=== PATIENT | male | born 1970 | race Caucasian/White ===

== ENCOUNTER 2017-08-26 20:13 | Emergency (ER) | payer OTHER, SELFPAY ==
--- NOTE | 2017-08-26 23:12 | RAD ---
RIGHT FOOT THREE VIEWS: History: Injury, right foot pain. FINDINGS/IMPRESSION: There is a fracture involving the neck of the proximal phalanx of the fifth digit without significan t displacement. POS: [facility]
== END 2017-08-26 22:26 | disposition home or self-care (01) ==
LOC: ERS 20:13
DX: S92.511A Displaced fracture of proximal phalanx of right lesser toe(s), initial encounter for closed fracture (principal); S90.31XA Contusion of right foot, initial encounter; J45.909 Unspecified asthma, uncomplicated; F17.210 Nicotine dependence, cigarettes, uncomplicated; W50.1XXA Accidental kick by another person, initial encounter

== ENCOUNTER 2017-09-01 08:44 | Emergency (ER) | payer SELFPAY ==
[2017-09-01] MEDS ORDERED: methylPREDNISolone Sod Succ/PF 125 MG/2 ML VIAL ONE (10:01)
[2017-09-01] MEDS ORDERED: Budesonide 0.5 MG/2 ML NEB ONE (10:12)
[2017-09-01] MEDS ORDERED: Water For Inject, Bacteriostat 30 ML ONE (10:12)
--- NOTE | 2017-09-01 10:21 | RAD ---
CHEST 2 VIEWS: HISTORY: Cough. COMPARISON: Chest 2 views 2016. Chest 1 view 05/14/17. FINDINGS: Lungs are clear. No pneumothorax or effusion. Cardiac silhouette and mediastinal contours are sonido lar. Minimal spondylitic changes. IMPRESSION: No acute intrathoracic abnormality. POS: [facility]
== END 2017-09-01 12:01 | disposition home or self-care (01) ==
LOC: ERS 08:44
DX: J20.9 Acute bronchitis, unspecified (principal); R09.02 Hypoxemia; T78.40XA Allergy, unspecified, initial encounter; J45.909 Unspecified asthma, uncomplicated; M19.90 Unspecified osteoarthritis, unspecified site; F17.210 Nicotine dependence, cigarettes, uncomplicated
CPT/HCPCS: 71020; 94640; 94760; 96361; 96374; J2930; J7620; J7626

== ENCOUNTER 2017-12-02 02:19 | Inpatient (IN) | payer BC, OTHER, SELFPAY ==
[2017-12-02] MEDS ORDERED: Ondansetron HCl/PF 4 MG/2 ML Vial ONE ×2 (02:43→07:48)
[2017-12-02 02:47] LABS: #Basophils 0.1 thou/uL (0.0-0.2); #Lymphocytes 1.6 thou/uL (1.20-3.40); #Monocytes 1.3 thou/uL (0.11-0.59); #Neutrophils 7.3 thou/uL (1.40-6.50); %Basophils 0.6 % (0.0-1.0); %Eosinophils 0.2 % (0.0-10.0); %Lymphocytes 15.8 % (21.0-51.0); %Monocytes 12.6 % (0.0-10.0); %Neutrophils 70.9 % (42.0-75.0); Hemoglobin 14.6 g/dL (14.0-18.0); Mean Corpuscular HGB CONC 34.8 g/dL (32.0-36.0); Mean Corpuscular Hemoglobin 32.1 pg (27.0-31.0); Mean Corpuscular Volume 92.4 fl (80.0-94.0); Mean Platelet Volume 7.1 fL (7.4-10.4); Platelet Count 231 thou/uL (130-400); RBC Distribution Width 13.1 % (11.5-14.5); Red Blood Cell (RBC) Count 4.55 mill/uL (4.70-6.10); White Blood Cell (WBC) Count 10.3 thou/uL (4.8-10.8)
[2017-12-02 03:01] LABS: ALT (SGPT) 35 U/L (8-55); AST (SGOT) 65 U/L (5-34); Albumin 3.6 g/dL (3.5-5.0); Alkaline Phosphatase 86 U/L (40-150); Anion Gap 16 mmol/L (10-20); BUN (Urea Nitrogen) 16 mg/dL (8.9-20.6); Bilirubin, Total 1.2 mg/dL (0.2-1.2); CK (CPK) 353 U/L (30-200); Calc. Creatinine Clearance 0 mL/min (70-130); Calcium 8.2 mg/dL (7.8-10.44); Carbon Dioxide 27 mmol/L (22-29); Chloride 91 mmol/L (98-107); Estimated GFR-MDRD Greater than 90; Globulin 2.7 g/dL (2.4-3.5); Glucose 141 mg/dL (70-105); Lipase 25 U/L (8-78); Potassium 3.7 mmol/L (3.5-5.1); Protein, Total 6.3 g/dL (6.0-8.3); Sodium 130 mmol/L (136-145)
[2017-12-02 03:04] LABS: Troponin I 0.017 ng/mL (< 0.028)
[2017-12-02 03:05] LABS: Acetaminophen Less than 6.0 mcg/mL (10.0-30.0); Alcohol 145 mg/dL (Less than 10); Salicylate Less than 8.0 mg/dL (15.0-30.0)
[2017-12-02] MEDS ORDERED: Pantoprazole 40 MG VIAL ONE ×2 (03:36→08:47)
[2017-12-02] MEDS ORDERED: Acetaminophen 500 MG TAB ONE (03:52)
[2017-12-02 04:02] LABS: Bilirubin Negative (Negative); Blood, Urine Negative (Negative); Clarity CLEAR (Clear); Glucose, Urine (Dipstick) Negative (Negative); Leukocyte Negative (Negative); Nitrite Negative (Negative); Protein, Urine (Dipstick) Negative (Neg-Trace); Specific Gravity, Urine 1.021 (1.002-1.036)
[2017-12-02 04:18] LABS: Amphetamine Not Detected (NotDetected); Barbiturates Screen Not Detected (NotDetected); Benzodiazepine Screen Not Detected (NotDetected); Cocaine Metabolite Screen Not Detected (NotDetected); Medtox Control Line Valid? VALID (VALID); Medtox Reader # READER 4; Methadone Not Detected (NotDetected); Methamphetamine Not Detected (NotDetected); Opiate Screen Not Detected (NotDetected); Oxycodone Screen Not Detected (NotDetected); Phencyclidine (PCP) Not Detected (NotDetected); THC/Cannabinoid Screen Not Detected (NotDetected); Tricyclic Screen Not Detected (NotDetected)
[2017-12-02] MEDS ORDERED: Mag-Al 1200 mg/1200 mg/30 ML UDCUP ONE (04:39)
[2017-12-02] MEDS ORDERED: Lidocaine Viscous Sol 2% 15 ml UD Cup ONE (04:39)
[2017-12-02] MEDS ORDERED: Ondansetron ODT 4 MG TAB PO PRN (06:47)
[2017-12-02] MEDS ORDERED: Acetaminophen 325 MG TAB PO PRN (06:47)
[2017-12-02] MEDS ORDERED: Loratadine 10 MG TAB PO PRN (06:47)
[2017-12-02] MEDS ORDERED: Sodium Chloride 0.65% Nasal 44 ML BOT EA NARE PRN (06:47)
[2017-12-02] MEDS ORDERED: hydrALAZINE 20 MG/ML VIAL SLOW IVP PRN (06:47)
[2017-12-02] MEDS ORDERED: Senokot 8.6 MG TAB PO PRN (06:47)
[2017-12-02] MEDS ORDERED: Loperamide HCl 2 MG CAP PO PRN (06:47)
[2017-12-02] MEDS ORDERED: Diabetic Tussin 200 MG/10 ML UDCUP PO PRN (06:47)
[2017-12-02] MEDS ORDERED: Calcium Carbonate 500 MG ChewTAB PO PRN (06:47)
[2017-12-02] MEDS ORDERED: Milk Of Magnesia 30 ML UDCUP PO PRN (06:47)
[2017-12-02] MEDS ORDERED: Artificial Tears 18 DROP/0.9 ML EA EYE PRN (06:47)
[2017-12-02] MEDS ORDERED: Ondansetron HCl/PF 4 MG/2 ML Vial IVP PRN (06:47)
[2017-12-02] MEDS ORDERED: Mag-Al 1200 mg/1200 mg/30 ML UDCUP PO PRN (06:47)
[2017-12-02] MEDS ORDERED: Eucerin (Mineral Oil/Petrolatum,White) 30 gm Jar TOP PRN (06:47)
[2017-12-02] MEDS ORDERED: Chloraseptic Spray 180 ml Bottle PO PRN (06:47)
[2017-12-02] MEDS ORDERED: Labetalol HCl 100 MG/20 ML VIAL SLOW IVP PRN (06:47)
[2017-12-02] MEDS ORDERED: Zolpidem Tartrate 5 MG TAB PO PRN (06:47)
[2017-12-02] MEDS ORDERED: Multivit, Adult Inj 10 ML VIAL IV SCH (07:00)
--- NOTE | 2017-12-02 08:02 | RAD ---
RADIOGRAPH CHEST 1 VIEW: HISTORY: A 47-year-old male with hematemesis. FINDINGS: There are no air space densities, pulmonary edema, pneumothorax, or cardiomegaly. The lateral costop hrenic angles are sharp. IMPRESSION: No acute cardiopulmonary findings. jn [] POS: [facility]
[2017-12-02] MEDS ORDERED: Pantoprazole 40 MG VIAL IVP SCH (09:00)
[2017-12-02] MEDS ORDERED: Promethazine HCl 25 MG/ML VIAL ONE (09:02)
[2017-12-02] MEDS ORDERED: PROVENTIL INHALER 6.7 G (200 INHALATIONS) INH PRN (09:26)
--- NOTE | 2017-12-02 10:02 | HP ---
PRIMARY CARE PHYSICIAN: [facility] call admission. REASON FOR ADMISSION: Upper gastrointestinal bleed. HISTORY OF PRESENT ILLNESS: A 47-year-old male who has history of tobacco and alcohol abuse, who cam e to the emergency room with complaint of melanotic stool for 3 days. Last night, the patient had vo miting of blood. He had a total of 4 times of vomiting of blood about 1 cup of fresh blood. He was having substernal burning discomfort as well as epigastric abdominal pain. The patient was also havi ng epigastric and substernal pain yesterday during daytime and to get better, he drinks alcohol. He denies any dizziness, syncope. He does report left upper quadrant abdominal pain. The patient was f eeling jittery, anxious. In the emergency room, he was tachycardic, uncomfortable. He was hemodynamically stable other than t achycardia and routine blood tests showed hemoglobin 14.6. At this point, we are admitting this nelia ent for further evaluation. REVIEW OF SYSTEMS: The following complete review of systems was negative, unless otherwise mentioned in the HPI or below: Constitutional: Weight loss or gain, ability to conduct usual activities. Skin: Rash, itching. Eyes: Double vision, pain. ENT/Mouth: Nose bleeding, neck stiffness, pain, tenderness. Cardiovascular: Palpitations, dyspnea on exertion, orthopnea. Respiratory: Shortness of breath, wheezing, cough, hemoptysis, fever or night sweats. Gastrointestinal: Poor appetite, abdominal pain, heartburn, nausea, vomiting, constipation, or diarr hea. Genitourinary: Urgency, frequency, dysuria, nocturia. Musculoskeletal: Pain, swelling. Neurologic/Psychiatric: Anxiety, depression. Allergy/Immunologic: Skin rash, bleeding tendency. Please see my HPI for pertinent positives and negatives. All other review of systems were reviewed a nd negative except as mentioned in the HPI. ALLERGIES: Patient is allergic to IBUPROFEN, SHELLFISH, SOY and CORN CONTAINING PRODUCT. CURRENT MEDICATIONS: Patient is not taking any medication at this point. Based on our hospital disc harge summary, the patient was on following medications: ProAir HFA 2 puffs q.6 hours p.r.n., folic acid 1 mg p.o. daily, lisinopril 5 mg p.o. daily, metoprolol 25 mg p.o. b.i.d., Dulera 2 puffs inhala tion b.i.d., multivitamin 1 tablet p.o. daily, Protonix 40 mg p.o. daily, thiamine 100 mg p.o. daily. PAST MEDICAL HISTORY: Alcohol abuse, tobacco abuse disorder, hypertension, asthma, right knee arthri tis. PAST PSYCHIATRIC HISTORY: Anxiety, depression, and bipolar disorder. PAST SURGICAL HISTORY: Oral surgery, upper endoscopy was performed in 05/2017 and found severe erosi ve esophagitis. SOCIAL HISTORY: Patient is smoking about 1 pack per day. He drinks alcohol 4 times per week. He de nies any other illicit drug abuse. FAMILY HISTORY: No strong family history of premature coronary artery disease, stroke or cancer. EMERGENCY ROOM COURSE: Patient has received DuoNeb therapy, Phenergan 12.5 mg IV push, multivitamin, nicotine patch, IV fluids, Zofran 4 mg, GI cocktail, Tylenol 1 gram, Protonix 40 mg IV, Zofran 8 mg. PHYSICAL EXAMINATION: VITAL SIGNS: On arrival, blood pressure 133/92, pulse 123, respiratory rate 24, temperature 98.9, sa turation 94% on room air, weight 122.4 kilograms. GENERAL: Patient is currently uncomfortable due to epigastric abdominal pain. HEAD: Normocephalic, atraumatic. EYES: Pupils round, reactive to light. Extraocular muscle intact. No nystagmus. ENT: Dry appearing mucous membranes. No oral lesions. No pharyngeal erythema, no exudate. NECK: Supple, no JVD, no thyromegaly, no carotid bruit, no meningeal signs of irritation. LUNGS: Bilateral few end expiratory wheezing heard. No rhonchi, no rales. CARDIAC: S1, S2 regular, tachycardia, no murmur, no gallop, no rub. ABDOMEN: Epigastric tenderness. No peritoneal signs, no distention. Bowel sounds present. No supr apubic tenderness. No organomegaly, no mass. BACK: Unremarkable, no CVA tenderness. EXTREMITIES: Upper extremity, passive movement of all joints are normal. Lower extremity, no edema . Good peripheral pulsation. No calf tenderness. SKIN: No skin rash. HEMATOLOGICAL: No lymphadenopathy. NEUROLOGIC: Nonfocal examination. The patient moves all 4 limbs. Plantar bilateral flexor. PSYCHIATRIC: Anxious affect. SIGNIFICANT LABORATORY DATA AND IMAGIN. EKG showing sinus tachycardia, incomplete right bundle branch block pattern, left anterior fascic ular block. 2. CT chest showing small to moderate hiatal hernia with nonspecific thickening of the distal esopha jalil. Chest x-ray based on my review, no acute cardiopulmonary process. 3. CBC: WBC 10.3, hemoglobin 14.6, platelets 231. BMP: Sodium 130, potassium 3.7, chloride 91, ca rbon dioxide 27, BUN 16, creatinine 0.69, glucose 141, calcium 8.2. 4. LFT: AST 65, ALT 35, alkaline phosphatase 86, albumin 3.6. CK 353, CK-MB 4.0, troponin I 0.017. BNP 10, lipase 25. Urinalysis normal. Urine drug screen negative. Alcohol level 145 on admission . ASSESSMENT AND PLAN: 1. Intractable nausea and vomiting. I am suspecting from esophagitis and gastritis. The patient wi ll need symptomatic treatment with Protonix, Zofran and Phenergan for control of nausea and vomiting. 2. Acute upper gastrointestinal bleed. Patient gives history of melenotic stool and hematemesis, mo st likely related with Olga-Marie tear. At this point, hemoglobin is stable. The patient will be kept n.p.o. We will consult card tape converter operator for upper endoscopic evaluation if needed. We will monitor H&H today at q.6 hourly. 3. Dehydration, likely due to poor p.o. tolerance. Patient has low sodium, low chloride. The patie nt will be given IV fluid with multivitamin and will repeat BMP tomorrow. 4. Abnormal liver function tests. Patient has elevated AST more than ALT, likely related with his o ngoing alcohol abuse history. 5. Hyponatremia and hypochloremia, likely due to dehydration. The patient will be given IV fluid an d we will repeat BMP tomorrow. 6. Alcohol abuse. Patient will be given multivitamin through the IV and we will watch for any alcoh ol withdrawal symptoms while in hospital, we will use Ativan p.r.n. basis. 7. Asthma. We will continue DuoNeb therapy q.6 hourly and Dulera 2 puffs inhalation b.i.d. 8. Hypertension. If blood pressure permits, then we will continue with lisinopril 5 mg p.o. daily, metoprolol 25 mg p.o. b.i.d. 9. Deep venous thrombosis prophylaxis. No Lovenox, because of bleeding. 10. Gastrointestinal prophylaxis. Patient is already on Protonix therapy IV b.i.d. 11. Code status: The patient is FULL CODE. Patient does not have any surrogate decision maker. 12. Tobacco abuse disorder. Smoking cessation counseling given. We will use nicotine patch while i n hospital if needed. Plan of care discussed with the patient in detail. 13. Hypertension. If blood pressure permits, then I will resume lisinopril 5 mg p.o. daily, metopro lol 25 mg p.o. b.i.d.
--- NOTE | 2017-12-02 10:25 | CT ---
PRELIMINARY REPORT/[facility]/EMERGENCY AFTER HOURS PROCEDURE: Addendum created by Benjamín Tovar MD on 12/02/2017 3:37 AM Central Time ( & [place]) Findings were discussed with Justice Meyers at 12/02/2017 3:37 AM RIGGER. Initial Report created on 12/02/2017 3:27 AM Central Time ( & [place]) EXAM: CT Chest With Intravenous Contrast EXAM DATE/TIME: Exam ordered 12/02/2017 2:56 AM CLINICAL HISTORY: 47 years old, male; Pain; Chest pain; Type not specified; Patient HX: Pain, n/v TECHNIQUE: Axial computed tomography images of the chest with intravenous contrast. Coronal reformatted images were created and reviewed. CONTRAST: 100 mL of ISOVUE administered intravenously. COMPARISON: No relevant prior studies available. FINDINGS: Lungs: The lungs are normal.The bronchial tree is normal. Pleural space: Normal. No pneumothorax. No significant effusion. Heart: Normal. No cardiomegaly. No significant pericardial effusion. Mediastinum: There is a small to moderate hiatal hernia with nonspecific thickening of the distal eso phagus. The trachea is normal. Thyroid: The visualized thyroid gland is unremarkable. Bones/joints: Normal. No acute fracture. No dislocation. Soft tissues: Normal. Vasculature: Normal. No thoracic aortic aneurysm. Lymph nodes: Normal. No enlarged lymph nodes. Upper abdomen: The visualized intra-abdominal structures are normal. IMPRESSION: There is a small to moderate hiatal hernia with nonspecific thickening of the distal esophagus. Consider further evaluation with direct inspection as clinically warranted to exclude underlying mass . Thank you for allowing us to participate in the care of your patient. Dictated and Authenticated by: Benjamín Tovar MD 12/02/2017 3:27 AM Central Time ( & [place]) FINAL REPORT EXAM: CHEST CT WITH CONTRAST: HISTORY: Asthma. Bipolar disorder. Esophageal tear present. TVD with vomiting blood and bloody stool. COMPARISON: None. TECHNIQUE: Chest CT is performed with IV contrast. Coronal reformatted images are submitted for interpretation. FINDINGS: This report is in agreement with the preliminary report by [facility]. There is moderate hiatal hernia. Th ere is nonspecific mucosal and paraesophageal thickening. No evidence of pneumomediastinum. No pneu mothorax. POS: [facility]
[2017-12-02 12:21] VITALS: BMI 32.8
[2017-12-02 12:46] LABS: Hemoglobin 13.5 g/dL (14.0-18.0)
[2017-12-02] MEDS: Dextrose 5 %-0.45 % NaCl 1,000 ML IV SCH ×2 (12:54→16:34)
[2017-12-02] MEDS: Multivitamins, Adult 10 ML in Sodium Chloride 0.9% 500 ML IV SCH ×2 (12:54)
[2017-12-02] MEDS: Nicotine 21 MG PATCH TD SCH (14:21)
--- NOTE | 2017-12-02 14:23 | CON ---
DATE OF CONSULTATION: 12/02/2017 GASTROINTESTINAL INPATIENT CONSULTATION NOTE REQUESTING PHYSICIAN: Todd Hernandez M.D. REASON FOR CONSULTATION: Hematemesis. HISTORY OF PRESENT ILLNESS: Betito Ching is a 47-year-old gentleman whom I had met a couple of memo es in prior hospitalizations. He has a history of alcohol abuse, tobacco abuse, arthritis and asthma as well as depression and anxiety. Back in 2014, he presented with acute hematemesis and an EGD at that time demonstrated a Olga-Marie tear. I met him again in 05/2017 when he again presented for hematemesis and chest pain in the context of alcohol intoxication. EGD at that time demonstrated sev ere LA grade D esophagitis throughout the lower esophagus. I had recommended that he continue on aci d suppression indefinitely as well as quit drinking all alcohol. Since that time, the patient has continued to drink alcohol. He has not continued on acid suppressio n. He does not take NSAIDs. He was not having any gastrointestinal symptoms until the past 3 days o r so, he says at that point, he knows that his bowel movements were appearing jet black. He started to have some crampy pain in the left upper quadrant and burning pain in the epigastrium and the chest over the past day or two and then last night had acute vomiting with tasia hematemesis. His last ep isode of hematemesis was early this morning. He presented and was found to be hemodynamically stable with initial hemoglobin of 14.5 and this is stable at 13.5. He is currently feeling a bit better. Nausea has improved, burning chest and epigastric discomfort persist and his alcohol level was 135. REVIEW OF SYSTEMS: Full review of systems including constitutional, head, eyes, ears, nose, throat, GI, , cardiovascular, respiratory, musculoskeletal, and neurologic systems is negative except as no tia in the HPI. PAST MEDICAL HISTORY: Asthma, hypertension, depression, anxiety, bipolar disorder, alcohol abuse, on going tobacco abuse, ongoing right knee arthritis, severe erosive esophagitis 05/2017 and Olga-Crescencio ss tear 2014. ALLERGIES: IBUPROFEN, SHELLFISH, SOY, CORN. OUTPATIENT MEDICATIONS: Albuterol inhaler p.r.n. No other outpatient medications. SOCIAL HISTORY: The patient smokes about 1 pack per day. He will have several beers at least 4 time s per week. No drug abuse. FAMILY HISTORY: Noncontributory. PHYSICAL EXAMINATION: VITAL SIGNS: Temperature 99.2, pulse 104, blood pressure 159/94, 96% oxygen saturation on room air. GENERAL: A 47-year-old gentleman sitting up in bed comfortably in no acute distress. SKIN: No jaundice, no rashes were palpable. EYES: No scleral icterus. Extraocular movements intact. ENT: Mucous membranes moist, no oral lesions. LYMPHATIC: No submandibular, supraclavicular lymphadenopathy. THYROID: Nontender to palpation. HEART: Regular rate and rhythm. Borderline tachycardia. LUNGS: Clear to auscultation bilaterally. ABDOMEN: Bowel sounds present, soft, tender to palpation in the epigastrium, but no guarding, reboun d tenderness. No masses or organomegaly appreciated. EXTREMITIES: No peripheral edema. VESSELS: Radial pulses 2+ bilaterally. NEUROLOGICAL: Cranial nerves II-XII intact bilaterally. No focal deficits. LABORATORY STUDIES: Hemoglobin 13.5, hematocrit 39.5, WBC 10.3, platelets 231. Sodium 130, potassiu m 3.7, BUN 16, creatinine 0.69, glucose 141. Total bilirubin 1.2, alkaline phosphatase 86, AST 65, A LT 35, CK 353, CK-MB only 4, troponin 0.017. BNP only 10, albumin 3.6, lipase only 25. Urinalysis n egative. Plasma alcohol 145. Urine drug screen negative. Acetaminophen level and salicylate levels are undetectable. ASSESSMENT AND PLAN: 1. Acute hematemesis. 2. Chronic alcohol abuse. 3. Chest pain. 4. Epigastric pain. 5. History of esophagitis. 6. History of Olga-Marie tear, the patient's presentation is consistent with prior presentations most recently in 05/2017. EGD at that time showed severe LA grade D erosive esophagitis in the dista l esophagus. He also does have a history of a Olga-Marie tear. I suspect he either developed ano ther Olga-Marie tear or this represents severe ongoing esophagitis. At any rate, given the tasia hematemesis, EGD is warranted at this admission. We will plan to perform EGD tomorrow. Continue the IV Protonix 40 mg q.12 h. in the meantime. In the long-term, obviously, the patient will need to st op drinking alcohol and he will likely need to be on lifelong acid suppression. I discussed this wit h the patient today. Thank you for the consultation. Further recommendations following EGD tomorrow. Please call at any time with questions or concerns.
[2017-12-02] MEDS: Lorazepam 1 MG TAB PO PRN ×2 (14:25→17:44)
[2017-12-02] MEDS ORDERED: Diazepam 5 MG TAB PO SCH ×2 (16:15→18:30)
[2017-12-02] MEDS ORDERED: ISOVUE-370 76%-LOCM 1 ML ONE (16:16)
[2017-12-02 17:40] LABS: Hemoglobin 12.8 g/dL (14.0-18.0)
[2017-12-02] MEDS ORDERED: Diazepam 5 MG TAB PO PRN (18:20)
[2017-12-02] MEDS ORDERED: Thiamine HCl 200 MG/2 ML VIAL IM SCH (18:30)
[2017-12-02] MEDS: Pantoprazole 80 MG, Admixture Fee 1 EACH in Sodium Chloride 0.9% 100 ML IVPB SCH (19:23)
[2017-12-02] MEDS: Mometasone/Formoterol 120 PUFF INHALER INH SCH (19:37)
[2017-12-02] MEDS: Metoprolol Tartrate 25 MG TAB PO SCH (20:26)
[2017-12-02] MEDS ORDERED: FLU VACC QS2017-18 36 mo. & older 0.5 ML SYRINGE IM ONE (21:00)
[2017-12-03 00:15] LABS: Hemoglobin 12.4 g/dL (14.0-18.0)
[2017-12-03] MEDS: Dextrose 5 %-0.45 % NaCl 1,000 ML IV SCH ×4 (00:18→20:34)
[2017-12-03] MEDS: HYDROcodone/Acetaminophen 5/325 mg Tablet PO PRN ×4 (04:17→20:31)
[2017-12-03] MEDS: Pantoprazole 80 MG, Admixture Fee 1 EACH in Sodium Chloride 0.9% 100 ML IVPB SCH ×2 (04:18→14:40)
[2017-12-03 04:44] LABS: #Lymphocytes 1.5 thou/uL (1.20-3.40); #Monocytes 0.9 thou/uL (0.11-0.59); #Neutrophils 5.5 thou/uL (1.40-6.50); %Basophils 0.5 % (0.0-1.0); %Eosinophils 0.4 % (0.0-10.0); %Lymphocytes 18.7 % (21.0-51.0); %Monocytes 11.7 % (0.0-10.0); %Neutrophils 68.7 % (42.0-75.0); Hemoglobin 13.8 g/dL (14.0-18.0); Mean Corpuscular HGB CONC 33.5 g/dL (32.0-36.0); Mean Corpuscular Hemoglobin 31.9 pg (27.0-31.0); Mean Corpuscular Volume 95.5 fl (80.0-94.0); Mean Platelet Volume 7.3 fL (7.4-10.4); Platelet Count 186 thou/uL (130-400); RBC Distribution Width 13.4 % (11.5-14.5); Red Blood Cell (RBC) Count 4.34 mill/uL (4.70-6.10)
[2017-12-03 05:10] LABS: ALT (SGPT) 27 U/L (8-55); AST (SGOT) 40 U/L (5-34); Albumin 3.4 g/dL (3.5-5.0); Alkaline Phosphatase 84 U/L (40-150); Anion Gap 12 mmol/L (10-20); BUN (Urea Nitrogen) 10 mg/dL (8.9-20.6); Bilirubin, Total 1.1 mg/dL (0.2-1.2); Calc. Creatinine Clearance 207 mL/min (70-130); Calcium 8.1 mg/dL (7.8-10.44); Carbon Dioxide 26 mmol/L (22-29); Chloride 102 mmol/L (98-107); Estimated GFR-MDRD Greater than 90; Globulin 2.7 g/dL (2.4-3.5); Glucose 99 mg/dL (70-105); Potassium 3.6 mmol/L (3.5-5.1); Protein, Total 6.1 g/dL (6.0-8.3); Sodium 136 mmol/L (136-145)
[2017-12-03] MEDS: Mometasone/Formoterol 120 PUFF INHALER INH SCH ×2 (06:38→19:02)
[2017-12-03] MEDS: Folic Acid 1 MG TAB PO SCH (08:14)
[2017-12-03] MEDS: Multivitamin W/ Minerals 1 TAB PO SCH (08:14)
[2017-12-03] MEDS: Metoprolol Tartrate 25 MG TAB PO SCH ×2 (08:40→20:33)
[2017-12-03] MEDS ORDERED: Diazepam 5 MG TAB PO SCH (09:00)
[2017-12-03] MEDS ORDERED: Multivitamin W/ Minerals 1 TAB PO SCH (09:00)
[2017-12-03] MEDS ORDERED: Folic Acid 1 MG TAB PO SCH (09:00)
[2017-12-03] MEDS: Lisinopril 5 MG TAB PO SCH (11:36)
[2017-12-03] MEDS: Magnesium Oxide 400 MG TAB PO SCH (11:37)
[2017-12-03] MEDS: Nicotine 21 MG PATCH TD SCH (11:38)
[2017-12-03] MEDS: Multivitamins, Adult 10 ML in Sodium Chloride 0.9% 500 ML IV SCH ×2 (12:47)
--- NOTE | 2017-12-03 12:47 | OP ---
DATE OF PROCEDURE: 12/03/2017 PROCEDURE: Esophagogastroduodenoscopy. PREOPERATIVE DIAGNOSIS: Hematemesis. OPERATIVE NOTE: Informed consent was obtained from the patient. He was sedated with total intraveno us anesthesia. The bite block was placed and the endoscope was advanced easily to the second portion of the duodenum and retroflexion was performed in the stomach. The esophagus had severe grade D ero sive esophagitis throughout the lower two-thirds of the esophagus. There was a stenosis in the lower esophagus through which the scope could pass easily through. A 3 cm hiatal hernia was present. The stomach was otherwise normal including retroflexed views. The pylorus and first and second portions of the duodenum were normal. IMPRESSION: 1. Grade D erosive esophagitis. 2. Distal esophageal stenosis through which the scope could pass through easily. 3. A 3 cm hiatal hernia. 4. Otherwise normal esophagogastroduodenoscopy. RECOMMENDATIONS: 1. Continue proton pump inhibitor drip today. 2. Change to oral pantoprazole 40 mg twice daily tomorrow. If he is unable to afford the pantoprazo le, then use omeprazole over the counter. 3. Repeat EGD in [address] Gaines to assess healing, rule out Jo's and reevaluate the stri cture. 4. Mechanical soft diet and advance as tolerated. 5. There are no stigmata of recent bleeding. I will sign off for now. Please call if GI can be of assistance.
[2017-12-03] MEDS ORDERED: Lidocaine 1% PF 5 ML VIAL ONE (13:08)
[2017-12-03] MEDS ORDERED: Propofol 200 MG/20 ML VIAL ONE (13:08)
[2017-12-03] MEDS: Mag-Al 1200 mg/1200 mg/30 ML UDCUP PO PRN (17:00)
--- NOTE | 2017-12-03 18:24 | PDOC.PN ---
- Subjective Encounter Start Date: 12/03/17 Encounter Start Time: 13:30 Patient seen and examined. s/p EGD. some epigastric discomfort. No overnight events - Objective Resuscitation Status: Resuscitation Status FULL:Full Resuscitation MAR Reviewed: Yes Vital Signs & Weight: Vital Signs (12 hours) Temp Pulse Resp BP BP Pulse Ox 12/03/17 16:00 138/92 H 12/03/17 15:02 98.8 F 88 20 138/92 H 96 12/03/17 12:00 134/87 12/03/17 11:36 87 114/86 12/03/17 11:03 98.1 F 86 20 134/87 99 12/03/17 08:00 98.0 F 87 20 114/86 114/86 98 Weight Admit Weight 270 lb Weight 270 lb I&O: 12/02/17 12/03/17 12/04/17 06:59 06:59 06:59 Intake Total 1845 Output Total 800 Balance 1045 Result Diagrams: 12/03/17 04:15 12/03/17 04:15 EKG Reviewed by me: Yes (Tele SR) Phys Exam - Physical Examination Constitutional: NAD Respiratory: no wheezing, no rales, no rhonchi, clear to auscultation bilateral Cardiovascular: RRR, no rub no heaves/pulsations Gastrointestinal: soft, non-tender, no distention, positive bowel sounds Musculoskeletal: no edema Neurological: non-focal, moves all 4 limbs Psychiatric: A&O x 3 Dx/Plan - Plan DVT proph w/SCDs IMPRESSION: 1. UGI bleed due to Erosive esophagitis s/p EGD 12/03 2. Anemia due to acute GI blood loss 3. Chronic Alcoholism 4. Tachyarrhythmia/Code green - prob due to alcohol withdrawal - improved 5. HTN 6. Mild Intermittent Asthma/HH/Wenxkfg-Tiyiepnhix-Uyfpnkg disorder/Tobacco dep / Obesity BMI 32.9/ Hyponatremia - resolved PLAN: * s/p EGD * Advance diet as tolerated * GI following * AM labs * Cont Protonix drip * Cont thiamine/folic acid/MVM * Add Cardizem PRN for elevated HR * Cont Metoprolol and Lisinopril * DC in AM if stable * Cont other current meds as below Review of Systems - Review of Systems Respiratory: negative: Cough, Dry, Shortness of Breath, Hemoptysis, SOB with Excertion, Pleuritic Pain, Sputum, Wheezing Cardiovascular: negative: chest pain, palpitations, orthopnea, paroxysmal nocturnal dyspnea, edema, light headedness Gastrointestinal: negative: Nausea, Vomiting, Abdominal Pain, Diarrhea, Constipation, Melena, Hematochezia - Medications/Allergies Allergies/Adverse Reactions: Allergies Allergy/AdvReac Type Severity Reaction Status Date / Time aspirin Allergy Intermediate Swollen Verified 02/28/16 07:48 Lips ibuprofen Allergy Intermediate Swollen Verified 02/28/16 07:48 Lips nut - unspecified Allergy Mild itching Verified 02/28/16 07:48 corn Allergy Verified 02/28/16 07:48 scallops Allergy Verified 02/28/16 07:48 shrimp Allergy Verified 02/28/16 07:48 soy Allergy Verified 03/25/16 09:55 wheat Allergy Verified 03/25/16 09:55 Medications: Current Medications Acetaminophen (Tylenol) 650 mg PO Q4H PRN PRN Reason: Headache/Fever or Pain Hydrocodone Bitart/Acetaminophen ([place] 5/325) 1 tab PO Q4H PRN PRN Reason: Moderate Pain (4-6) Last Admin: 12/03/17 16:14 Dose: 1 tab Al Hydroxide/Mg Hydroxide (Maalox) 30 ml PO Q6H PRN PRN Reason: Heartburn or Indigestion Last Admin: 12/03/17 17:00 Dose: 30 ml Albuterol Sulfate (Proventil Hfa) 2 puff INH Q6H PRN PRN Reason: SOB &/or Wheezing Albuterol/Ipratropium (Duoneb) 3 ml NEB [id number]-GS PRN PRN Reason: SOB &/or Wheezing Last Admin: 12/02/17 19:29 Dose: 3 ml Artificial Tears (Tears Naturale) 0 drop EA EYE PRN PRN PRN Reason: Dry Eyes Calcium Carbonate (Tums) 1,000 mg PO Q4H PRN PRN Reason: Heartburn or Indigestion Diazepam (Valium) 5 mg PO Q4H PRN PRN Reason: FOR ASE 10 OR GREATER Diltiazem HCl (Cardizem) 5 mg SLOW IVP Q4HR PRN PRN Reason: HR >130 sustained Diltiazem HCl (Cardizem) 30 mg PO Q6HR PRN PRN Reason: HR >120 sustained Folic Acid (Folvite) 1 mg PO DAILY [facility] Last Admin: 12/03/17 08:14 Dose: Not Given Folic Acid (Folvite) 1 mg PO DAILY [facility] Last Admin: 12/03/17 11:37 Dose: Not Given Guaifenesin (Robitussin Sf) 200 mg PO Q4H PRN PRN Reason: Cough Hydralazine HCl (Apresoline) 10 mg SLOW IVP Q4H PRN PRN Reason: Systolic BP > 180 Dextrose/Sodium Chloride (D5 1/2 Ns) 1,000 mls @ 125 mls/hr IV .Q8H [facility] Last Admin: 12/03/17 14:43 Dose: 1,000 mls Pantoprazole Sodium 80 mg/Miscellaneous Medication 1 each/ Sodium Chloride 100 mls @ 10 mls/hr IVPB INF [facility] Stop: 12/04/17 08:00 Last Admin: 12/03/17 14:40 Dose: 100 mls Iron/Minerals/Multivitamins (Theragran M) 1 tab PO DAILY [facility] Last Admin: 12/03/17 08:14 Dose: Not Given Labetalol HCl (Normodyne) 20 mg SLOW IVP Q4H PRN PRN Reason: Systolic BP > 180 Lisinopril (Zestril) 5 mg PO DAILY [facility] Last Admin: 12/03/17 11:36 Dose: 5 mg Loperamide HCl (Imodium) 2 mg PO PRN PRN PRN Reason: Diarrhea/Loose Stools Loratadine (Claritin) 10 mg PO DAILYPRN PRN PRN Reason: Sinus Symptoms Lorazepam (Ativan) 1 mg PO Q4H PRN PRN Reason: Anxiety/Agitation Last Admin: 12/02/17 17:44 Dose: 1 mg Magnesium Hydroxide (Milk Of Magnesium) 30 ml PO DAILYPRN PRN PRN Reason: Constipation Magnesium Oxide (Magnesium Oxide) 400 mg PO DAILY [facility] Last Admin: 12/03/17 11:37 Dose: Not Given Metoprolol Tartrate (Lopressor) 25 mg PO BID [facility] Last Admin: 12/03/17 08:40 Dose: 25 mg Mineral Oil/White Petrolatum (Eucerin Cream) 0 gm TOP BIDPRN PRN PRN Reason: Dry Skin Mometasone Furoate/Formoterol Fumar (Dulera 200 Mcg/5 Mcg Inhaler) 2 puff INH BID [facility] Last Admin: 12/03/17 06:38 Dose: 2 puff Ondansetron HCl (Zofran Odt) 4 mg PO Q6H PRN PRN Reason: Nausea/Vomiting Last Admin: 12/02/17 15:07 Dose: 4 mg Ondansetron HCl (Zofran) 4 mg IVP Q6H PRN PRN Reason: Nausea/Vomiting Pantoprazole Sodium (Protonix) 40 mg PO BID [facility] Phenol (Chloraseptic Mcalister 180 Ml Bot) 0 ml PO PRN PRN PRN Reason: Sore Throat Senna (Senokot) 2 tab PO HSPRN PRN PRN Reason: Constipation Sodium Chloride (Hood Nasal Mcalister 0.65%) 0 ml EA NARE QIDPRN PRN PRN Reason: Nasal Congestion Thiamine HCl (Thiamine) 100 mg PO DAILY [facility] Last Admin: 12/03/17 08:15 Dose: Not Given Thiamine HCl (Thiamine) 100 mg PO DAILY [facility] Last Admin: 12/03/17 11:38 Dose: Not Given Zolpidem Tartrate (Ambien) 5 mg PO HSPRN PRN PRN Reason: Insomnia
[2017-12-03] MEDS ORDERED: Labetalol HCl 100 MG/20 ML VIAL SLOW IVP PRN (18:25)
[2017-12-03] MEDS: Calcium Carbonate 500 MG ChewTAB PO PRN (20:33)
[2017-12-03] MEDS: Lorazepam 1 MG TAB PO PRN (21:38)
--- NOTE | 2017-12-03 23:41 | EKG ---
Test Reason : Blood Pressure : / mmHG Vent. Rate : 110 BPM Atrial Rate : 110 BPM P-R Int : 176 ms QRS Dur : 100 ms QT Int : 338 ms P-R-T Axes : 080 -49 069 degrees QTc Int : 457 ms Sinus tachycardia Baseline artifact. Left axis deviation Abnormal ECG When compared with ECG of 02-DEC-2017 02:31, (Unconfirmed) Criteria for Inferior infarct are no longer Present Confirmed by Dulce AUSTIN ([id number]) on 12/03/2017 11:41:16 PM Referred By: Confirmed By:Dulce AUSTIN
[2017-12-04] MEDS: Mag-Al 1200 mg/1200 mg/30 ML UDCUP PO PRN ×2 (00:36→15:56)
[2017-12-04] MEDS: Pantoprazole 80 MG, Admixture Fee 1 EACH in Sodium Chloride 0.9% 100 ML IVPB SCH (00:37)
[2017-12-04] MEDS: Calcium Carbonate 500 MG ChewTAB PO PRN (03:49)
[2017-12-04] MEDS: HYDROcodone/Acetaminophen 5/325 mg Tablet PO PRN ×2 (03:49→15:51)
[2017-12-04] MEDS: Dextrose 5 %-0.45 % NaCl 1,000 ML IV SCH ×2 (05:23→20:24)
[2017-12-04] MEDS: Mometasone/Formoterol 120 PUFF INHALER INH SCH ×2 (08:50→20:01)
[2017-12-04] MEDS: Folic Acid 1 MG TAB PO SCH (09:42)
[2017-12-04] MEDS: Magnesium Oxide 400 MG TAB PO SCH (09:42)
[2017-12-04] MEDS: Lisinopril 5 MG TAB PO SCH (09:42)
[2017-12-04] MEDS: Multivitamin W/ Minerals 1 TAB PO SCH (09:42)
[2017-12-04] MEDS: Metoprolol Tartrate 25 MG TAB PO SCH ×2 (09:42→20:21)
[2017-12-04] MEDS ORDERED: Nicotine 14 MG PATCH TD SCH (16:45)
[2017-12-04] MEDS: Lorazepam 1 MG TAB PO PRN (20:21)
--- NOTE | 2017-12-04 21:20 | PDOC.PN ---
- Subjective Encounter Start Date: 12/04/17 Encounter Start Time: 12:00 Patient seen and examined. No new hematemesis. Patient feels lightheaded and weak. Severe GERD symtoms. No overnight events - Objective Resuscitation Status: Resuscitation Status FULL:Full Resuscitation MAR Reviewed: Yes Vital Signs & Weight: Vital Signs (12 hours) Temp Pulse Resp BP BP Pulse Ox 12/04/17 18:06 98.6 F 97 18 126/82 94 L 12/04/17 16:27 137/93 H 12/04/17 16:00 98.6 F 87 18 137/93 H 95 12/04/17 12:00 97.9 F 91 18 134/94 H 95 12/04/17 11:25 134/94 H 12/04/17 09:42 92 Weight Admit Weight 270 lb Weight 270 lb I&O: 12/03/17 12/04/17 12/05/17 06:59 06:59 06:59 Intake Total 1845 4140 Output Total 800 2300 Balance 1045 1840 Result Diagrams: 12/05/17 04:23 12/03/17 04:15 Phys Exam - Physical Examination Constitutional: NAD Respiratory: no wheezing, no rhonchi Cardiovascular: RRR, no rub Gastrointestinal: soft, non-tender, positive bowel sounds Musculoskeletal: no edema Dx/Plan - Plan DVT proph w/SCDs IMPRESSION: 1. UGI bleed due to Erosive esophagitis s/p EGD 12/03 2. Anemia due to acute GI blood loss 3. Chronic Alcoholism 4. Tachyarrhythmia/Code green - prob due to alcohol withdrawal - improved 5. HTN 6. Mild Intermittent Asthma/HH/Vfhzlrk-Lylxiqugeu-Mehmzsa disorder/Tobacco dep / Obesity BMI 32.9/ Hyponatremia - resolved PLAN: * Advance diet as tolerated * GI following * AM labs * Cont Protonix oral * Cont thiamine/folic acid/MVM * Cont Metoprolol and Lisinopril * DC in AM if stable * Cont other current meds as below Review of Systems - Review of Systems Respiratory: negative: Cough, Dry, Shortness of Breath, Hemoptysis, SOB with Excertion, Pleuritic Pain, Sputum, Wheezing Cardiovascular: negative: chest pain, palpitations, orthopnea, paroxysmal nocturnal dyspnea, edema, light headedness Gastrointestinal: negative: Nausea, Vomiting, Abdominal Pain, Diarrhea, Constipation, Melena, Hematochezia - Medications/Allergies Allergies/Adverse Reactions: Allergies Allergy/AdvReac Type Severity Reaction Status Date / Time aspirin Allergy Intermediate Swollen Verified 02/28/16 07:48 Lips ibuprofen Allergy Intermediate Swollen Verified 02/28/16 07:48 Lips nut - unspecified Allergy Mild itching Verified 02/28/16 07:48 corn Allergy Verified 02/28/16 07:48 scallops Allergy Verified 02/28/16 07:48 shrimp Allergy Verified 02/28/16 07:48 soy Allergy Verified 03/25/16 09:55 wheat Allergy Verified 03/25/16 09:55 Medications: Current Medications Acetaminophen (Tylenol) 650 mg PO Q4H PRN PRN Reason: Headache/Fever or Pain Hydrocodone Bitart/Acetaminophen ([place] 5/325) 1 tab PO Q4H PRN PRN Reason: Moderate Pain (4-6) Last Admin: 12/04/17 15:51 Dose: 1 tab Al Hydroxide/Mg Hydroxide (Maalox) 30 ml PO Q6H PRN PRN Reason: Heartburn or Indigestion Last Admin: 12/04/17 15:56 Dose: 30 ml Albuterol Sulfate (Proventil Hfa) 2 puff INH Q6H PRN PRN Reason: SOB &/or Wheezing Albuterol/Ipratropium (Duoneb) 3 ml NEB [id number] PRN PRN Reason: SOB &/or Wheezing Last Admin: 12/02/17 19:29 Dose: 3 ml Artificial Tears (Tears Naturale) 0 drop EA EYE PRN PRN PRN Reason: Dry Eyes Calcium Carbonate (Tums) 1,000 mg PO Q4H PRN PRN Reason: Heartburn or Indigestion Last Admin: 12/04/17 03:49 Dose: 1,000 mg Diazepam (Valium) 5 mg PO Q4H PRN PRN Reason: FOR ASE 10 OR GREATER Diltiazem HCl (Cardizem) 5 mg SLOW IVP Q4HR PRN PRN Reason: HR >130 sustained Diltiazem HCl (Cardizem) 30 mg PO Q6HR PRN PRN Reason: HR >120 sustained Folic Acid (Folvite) 1 mg PO DAILY [facility] Last Admin: 12/04/17 09:42 Dose: 1 mg Guaifenesin (Robitussin Sf) 200 mg PO Q4H PRN PRN Reason: Cough Hydralazine HCl (Apresoline) 10 mg SLOW IVP Q4H PRN PRN Reason: Systolic BP > 180 Dextrose/Sodium Chloride (D5 1/2 Ns) 1,000 mls @ 75 mls/hr IV .[id number] [facility] Last Admin: 12/04/17 20:24 Dose: 1,000 mls Iron/Minerals/Multivitamins (Theragran M) 1 tab PO DAILY [facility] Last Admin: 12/04/17 09:42 Dose: 1 tab Labetalol HCl (Normodyne) 10 mg SLOW IVP Q4H PRN PRN Reason: Systolic BP > 180 Lisinopril (Zestril) 5 mg PO DAILY [facility] Last Admin: 12/04/17 09:42 Dose: 5 mg Loperamide HCl (Imodium) 2 mg PO PRN PRN PRN Reason: Diarrhea/Loose Stools Loratadine (Claritin) 10 mg PO DAILYPRN PRN PRN Reason: Sinus Symptoms Lorazepam (Ativan) 1 mg PO Q4H PRN PRN Reason: Anxiety/Agitation Last Admin: 12/04/17 20:21 Dose: 1 mg Magnesium Hydroxide (Milk Of Magnesium) 30 ml PO DAILYPRN PRN PRN Reason: Constipation Magnesium Oxide (Magnesium Oxide) 400 mg PO DAILY [facility] Last Admin: 12/04/17 09:42 Dose: 400 mg Metoprolol Tartrate (Lopressor) 25 mg PO BID [facility] Last Admin: 12/04/17 20:21 Dose: 25 mg Mineral Oil/White Petrolatum (Eucerin Cream) 0 gm TOP BIDPRN PRN PRN Reason: Dry Skin Mometasone Furoate/Formoterol Fumar (Dulera 200 Mcg/5 Mcg Inhaler) 2 puff INH BID [facility] Last Admin: 12/04/17 20:01 Dose: 2 puff Ondansetron HCl (Zofran Odt) 4 mg PO Q6H PRN PRN Reason: Nausea/Vomiting Last Admin: 12/02/17 15:07 Dose: 4 mg Ondansetron HCl (Zofran) 4 mg IVP Q6H PRN PRN Reason: Nausea/Vomiting Pantoprazole Sodium (Protonix) 40 mg PO BID [facility] Last Admin: 12/04/17 20:21 Dose: 40 mg Phenol (Chloraseptic [place] 180 Ml Bot) 0 ml PO PRN PRN PRN Reason: Sore Throat Senna (Senokot) 2 tab PO HSPRN PRN PRN Reason: Constipation Sodium Chloride ([place] Nasal [place] 0.65%) 0 ml EA NARE QIDPRN PRN PRN Reason: Nasal Congestion Thiamine HCl (Thiamine) 100 mg PO DAILY [facility] Last Admin: 12/04/17 09:42 Dose: 100 mg Zolpidem Tartrate (Ambien) 5 mg PO HSPRN PRN PRN Reason: Insomnia Last Admin: 12/04/17 00:36 Dose: 5 mg
[2017-12-05] MEDS: Mag-Al 1200 mg/1200 mg/30 ML UDCUP PO PRN ×4 (00:14→20:24)
[2017-12-05] MEDS: HYDROcodone/Acetaminophen 5/325 mg Tablet PO PRN (05:36)
[2017-12-05 05:38] LABS: Platelet Count 196 thou/uL (130-400)
[2017-12-05] MEDS: Mometasone/Formoterol 120 PUFF INHALER INH SCH ×2 (07:22→20:00)
[2017-12-05] MEDS: Diazepam 5 MG TAB PO PRN ×3 (08:06→20:24)
[2017-12-05] MEDS: Folic Acid 1 MG TAB PO SCH (08:07)
[2017-12-05] MEDS: Multivitamin W/ Minerals 1 TAB PO SCH (08:07)
[2017-12-05] MEDS: Magnesium Oxide 400 MG TAB PO SCH (08:07)
[2017-12-05] MEDS: Lisinopril 5 MG TAB PO SCH (08:08)
[2017-12-05] MEDS: Metoprolol Tartrate 25 MG TAB PO SCH ×3 (08:08→23:38)
[2017-12-05] MEDS: Dextrose 5 %-0.45 % NaCl 1,000 ML IV SCH ×2 (09:53→13:25)
[2017-12-05] MEDS ORDERED: cloNIDine 0.1 MG TAB PO PRN (13:36)
--- NOTE | 2017-12-05 13:42 | PDOC.PN ---
- Subjective Encounter Start Date: 12/05/17 Encounter Start Time: 13:00 Patient seen and examined. Feels lightheaded with abd cramping. No overnight events. BP elevated per RN. - Objective Resuscitation Status: Resuscitation Status FULL:Full Resuscitation MAR Reviewed: Yes Vital Signs & Weight: Vital Signs (12 hours) Temp Pulse Resp BP BP Pulse Ox 12/05/17 08:11 98.5 F 92 20 153/100 H 92 L 12/05/17 08:08 95 153/100 H 12/05/17 08:00 98.5 F 92 20 132/82 95 12/05/17 07:22 87 16 97 12/05/17 04:00 132/84 12/05/17 03:59 98.1 F 93 20 132/84 93 L Weight Admit Weight 270 lb Weight 270 lb I&O: 12/04/17 12/05/17 12/06/17 06:59 06:59 06:59 Intake Total 4140 1320 Output Total 2300 Balance 1840 1320 Result Diagrams: 12/05/17 04:23 12/03/17 04:15 Phys Exam - Physical Examination Constitutional: NAD (Also has gen tremors, Anxious appearing) Respiratory: no wheezing, no rhonchi Cardiovascular: RRR, no rub Gastrointestinal: soft, non-tender, positive bowel sounds Musculoskeletal: no edema Neurological: moves all 4 limbs Dx/Plan - Plan DVT proph w/SCDs IMPRESSION: 1. Alcohol withdrawal 2. UGI bleed due to Erosive esophagitis s/p EGD 12/03 - tolerating liqd. Has difficulty with mech soft feeds 3. Anemia due to acute GI blood loss 4. Chronic Alcoholism - on thiamine/folic acid/MVM 5. HTN - uncontrolled - prob due to Alcohol withdrawal 6. Tachyarrhythmia/Code green - prob due to alcohol withdrawal - improved 7. Mild Intermittent Asthma/HH/Jtsdslj-Ctulbqfhsz-Iuigcgf disorder/Tobacco dep - on nicotin patch /Obesity BMI 32.9/ Hyponatremia - resolved PLAN: * Add Clonidine 0.1 mg TID for elevated BP/alcohol withdrawal * Add Librium 10 mg TID * Cont Valium for alcohol withdrawal * DC Lisinopril * Monitor HH * Cont Protonix oral * Cont thiamine/folic acid/MVM * Cont Metoprolol * Cont other current meds as below * Add Ensure * Patient is not stable for discharge due to elevated BP/alcohol withdrawal symptoms and lightheadedness. Patient also lives alone. * Consult PT Review of Systems - Review of Systems Respiratory: negative: Cough, Dry, Shortness of Breath, Hemoptysis, SOB with Excertion, Pleuritic Pain, Sputum, Wheezing Cardiovascular: negative: chest pain, palpitations, orthopnea, paroxysmal nocturnal dyspnea, edema, light headedness - Medications/Allergies Allergies/Adverse Reactions: Allergies Allergy/AdvReac Type Severity Reaction Status Date / Time ibuprofen Allergy Intermediate Swollen Verified 02/28/16 07:48 Lips Medications: Current Medications Acetaminophen (Tylenol) 650 mg PO Q4H PRN PRN Reason: Headache/Fever or Pain Al Hydroxide/Mg Hydroxide (Maalox) 30 ml PO Q6H PRN PRN Reason: Heartburn or Indigestion Last Admin: 12/05/17 13:24 Dose: 30 ml Albuterol Sulfate (Proventil Hfa) 2 puff INH Q6H PRN PRN Reason: SOB &/or Wheezing Albuterol/Ipratropium (Duoneb) 3 ml NEB [id number] PRN PRN Reason: SOB &/or Wheezing Last Admin: 12/02/17 19:29 Dose: 3 ml Albuterol/Ipratropium (Duoneb) 3 ml NEB [id number] PRN PRN Reason: SOB &/or Wheezing Artificial Tears (Tears Naturale) 0 drop EA EYE PRN PRN PRN Reason: Dry Eyes Calcium Carbonate (Tums) 1,000 mg PO Q4H PRN PRN Reason: Heartburn or Indigestion Last Admin: 12/04/17 03:49 Dose: 1,000 mg Chlordiazepoxide HCl (Librium) 10 mg PO TID [facility] Clonidine (Catapres) 0.1 mg PO Q4H PRN PRN Reason: Systolic BP > 180 Clonidine (Catapres) 0.1 mg PO TID [facility] Diazepam (Valium) 5 mg PO Q4H PRN PRN Reason: FOR ASE 10 OR GREATER Last Admin: 12/05/17 13:06 Dose: 5 mg Diltiazem HCl (Cardizem) 5 mg SLOW IVP Q4HR PRN PRN Reason: HR >130 sustained Diltiazem HCl (Cardizem) 30 mg PO Q6HR PRN PRN Reason: HR >120 sustained Folic Acid (Folvite) 1 mg PO DAILY [facility] Last Admin: 12/05/17 08:07 Dose: 1 mg Guaifenesin (Robitussin Sf) 200 mg PO Q4H PRN PRN Reason: Cough Hydralazine HCl (Apresoline) 10 mg SLOW IVP Q4H PRN PRN Reason: Systolic BP > 180 Dextrose/Sodium Chloride (D5 1/2 Ns) 1,000 mls @ 50 mls/hr IV .Q20H [facility] Last Admin: 12/05/17 13:25 Dose: Not Given Iron/Minerals/Multivitamins (Theragran M) 1 tab PO DAILY [facility] Last Admin: 12/05/17 08:07 Dose: 1 tab Labetalol HCl (Normodyne) 10 mg SLOW IVP Q4H PRN PRN Reason: Systolic BP > 180 Loperamide HCl (Imodium) 2 mg PO PRN PRN PRN Reason: Diarrhea/Loose Stools Loratadine (Claritin) 10 mg PO DAILYPRN PRN PRN Reason: Sinus Symptoms Magnesium Hydroxide (Milk Of Magnesium) 30 ml PO DAILYPRN PRN PRN Reason: Constipation Metoprolol Tartrate (Lopressor) 25 mg PO BID [facility] Mineral Oil/White Petrolatum (Eucerin Cream) 0 gm TOP BIDPRN PRN PRN Reason: Dry Skin Mometasone Furoate/Formoterol Fumar (Dulera 200 Mcg/5 Mcg Inhaler) 2 puff INH BID [facility] Last Admin: 12/05/17 07:22 Dose: 2 puff Nicotine (Nicoderm Patch) 14 mg TD Q24HR [facility] Ondansetron HCl (Zofran Odt) 4 mg PO Q6H PRN PRN Reason: Nausea/Vomiting Last Admin: 12/02/17 15:07 Dose: 4 mg Ondansetron HCl (Zofran) 4 mg IVP Q6H PRN PRN Reason: Nausea/Vomiting Pantoprazole Sodium (Protonix) 40 mg PO BID [facility] Last Admin: 12/05/17 08:07 Dose: 40 mg Phenol (Chloraseptic Lane 180 Ml Bot) 0 ml PO PRN PRN PRN Reason: Sore Throat Senna (Senokot) 2 tab PO HSPRN PRN PRN Reason: Constipation Sodium Chloride ([place] Nasal [address] 0.65%) 0 ml EA NARE QIDPRN PRN PRN Reason: Nasal Congestion Sodium Chloride (Flush - Normal Saline) 10 ml IVF Q12HR [facility] Sodium Chloride (Flush - Normal Saline) 10 ml IVF PRN PRN PRN Reason: Saline Flush Thiamine HCl (Thiamine) 100 mg PO DAILY [facility] Last Admin: 12/05/17 08:06 Dose: 100 mg
[2017-12-05] MEDS: Nicotine 14 MG PATCH TD SCH (15:25)
[2017-12-05] MEDS: cloNIDine 0.1 MG TAB PO SCH ×2 (15:26→20:25)
[2017-12-06 05:14] LABS: Hemoglobin 11.7 g/dL (14.0-18.0); Platelet Count 208 thou/uL (130-400)
[2017-12-06 05:28] LABS: Anion Gap 10 mmol/L (10-20); BUN (Urea Nitrogen) 7 mg/dL (8.9-20.6); Calc. Creatinine Clearance 241 mL/min (70-130); Calcium 8.9 mg/dL (7.8-10.44); Carbon Dioxide 29 mmol/L (22-29); Chloride 103 mmol/L (98-107); Estimated GFR-MDRD Greater than 90; Glucose 101 mg/dL (70-105); Magnesium 2.3 mg/dL (1.6-2.6); Potassium 4.1 mmol/L (3.5-5.1); Sodium 138 mmol/L (136-145)
[2017-12-06] MEDS: Dextrose 5 %-0.45 % NaCl 1,000 ML IV SCH (05:32)
[2017-12-06] MEDS: Mometasone/Formoterol 120 PUFF INHALER INH SCH ×2 (06:37→19:23)
[2017-12-06] MEDS: Metoprolol Tartrate 25 MG TAB PO SCH ×2 (09:43→20:19)
[2017-12-06] MEDS: Folic Acid 1 MG TAB PO SCH (09:43)
[2017-12-06] MEDS: Diazepam 5 MG TAB PO PRN (09:43)
[2017-12-06] MEDS: Multivitamin W/ Minerals 1 TAB PO SCH (09:43)
[2017-12-06] MEDS: cloNIDine 0.1 MG TAB PO SCH ×3 (09:50→20:20)
[2017-12-06] MEDS: Mag-Al 1200 mg/1200 mg/30 ML UDCUP PO PRN ×2 (09:52→22:17)
--- NOTE | 2017-12-06 12:00 | PDOC.PN ---
- Subjective Encounter Start Date: 12/06/17 Encounter Start Time: 11:30 Patient seen and examined. Had some dark tarry stool this morning. Feels lightheaded on ambulation. Withdrawal symptoms controlled on Clonidine/ LibriumSCH /Valium PRN. Overnight events noted. - Objective Resuscitation Status: Resuscitation Status FULL:Full Resuscitation MAR Reviewed: Yes Vital Signs & Weight: Vital Signs (12 hours) Temp Pulse Resp BP BP Pulse Ox 12/06/17 11:36 98.2 F 80 18 127/83 94 L 12/06/17 09:50 134/93 H 12/06/17 08:00 98.0 F 85 16 139/91 H 93 L 12/06/17 07:30 98.0 F 85 16 139/91 H 93 L 12/06/17 04:17 134/93 H 12/06/17 04:00 98.8 F 81 16 134/93 H 95 12/06/17 03:19 95 Weight Admit Weight 270 lb Weight 270 lb I&O: 12/05/17 12/06/17 12/07/17 06:59 06:59 06:59 Intake Total 1320 3325 Balance 1320 3325 Result Diagrams: 12/07/17 04:15 12/06/17 05:01 Phys Exam - Physical Examination Constitutional: NAD Respiratory: no wheezing, no rhonchi Cardiovascular: RRR, no rub Gastrointestinal: soft, non-tender, positive bowel sounds Musculoskeletal: no edema Neurological: moves all 4 limbs Dx/Plan - Plan PT/OT, out of bed/ambulate, DVT proph w/SCDs IMPRESSION: 1. Alcohol withdrawal - on Clonidine/Librium KAUSHAL with Valium PRN 2. UGI bleed due to Erosive esophagitis s/p EGD 12/03 - tolerating liqd. Still has difficulty with mech soft feeds. On PPI 3. Anemia due to acute GI blood loss. 4. Chronic Alcoholism - on thiamine/folic acid/MVM 5. HTN - uncontrolled - prob due to Alcohol withdrawal 6. Tachyarrhythmia/Code green - prob due to alcohol withdrawal - improved 7. Mild Intermittent Asthma/HH/Ludmrwl-Zchbxfyryg-Cmgojwv disorder/Tobacco dep - on nicotin patch /Obesity BMI 32.9/ Hyponatremia - resolved PLAN: * Cont Clonidine 0.1 mg TID for elevated BP/alcohol withdrawal * Cont Librium 10 mg TID * Cont Valium for alcohol withdrawal * Monitor HH * Cont Protonix oral * Cont thiamine/folic acid/MVM * Cont Metoprolol * Cont other current meds as below * I don't feel comfortable discharging him since he lives alone. He is also in active alcohol withdrawal. * Await PT Review of Systems - Review of Systems Respiratory: negative: Cough, Dry, Shortness of Breath, Hemoptysis, SOB with Excertion, Pleuritic Pain, Sputum, Wheezing Cardiovascular: negative: chest pain, palpitations, orthopnea, paroxysmal nocturnal dyspnea, edema, light headedness - Medications/Allergies Allergies/Adverse Reactions: Allergies Allergy/AdvReac Type Severity Reaction Status Date / Time ibuprofen Allergy Intermediate Swollen Verified 02/28/16 07:48 Lips aspirin Allergy Verified 12/07/17 01:30 corn Allergy Verified 12/07/17 01:30 scallops Allergy Verified 12/07/17 01:30 shrimp Allergy Verified 12/07/17 01:30 soy Allergy Verified 12/07/17 01:30 wheat Allergy Verified 12/07/17 01:30 Medications: Current Medications Acetaminophen (Tylenol) 650 mg PO Q4H PRN PRN Reason: Headache/Fever or Pain Al Hydroxide/Mg Hydroxide (Maalox) 30 ml PO Q6H PRN PRN Reason: Heartburn or Indigestion Last Admin: 12/06/17 09:52 Dose: 30 ml Albuterol Sulfate (Proventil Hfa) 2 puff INH Q6H PRN PRN Reason: SOB &/or Wheezing Albuterol/Ipratropium (Duoneb) 3 ml NEB [id number] PRN PRN Reason: SOB &/or Wheezing Last Admin: 12/02/17 19:29 Dose: 3 ml Albuterol/Ipratropium (Duoneb) 3 ml NEB [id number] PRN PRN Reason: SOB &/or Wheezing Artificial Tears (Tears Naturale) 0 drop EA EYE PRN PRN PRN Reason: Dry Eyes Calcium Carbonate (Tums) 1,000 mg PO Q4H PRN PRN Reason: Heartburn or Indigestion Last Admin: 12/04/17 03:49 Dose: 1,000 mg Chlordiazepoxide HCl (Librium) 10 mg PO TID [facility] Last Admin: 12/06/17 09:49 Dose: 10 mg Clonidine (Catapres) 0.1 mg PO Q4H PRN PRN Reason: Systolic BP > 180 Clonidine (Catapres) 0.1 mg PO TID [facility] Last Admin: 12/06/17 09:50 Dose: Not Given Diazepam (Valium) 5 mg PO Q4H PRN PRN Reason: FOR ASE 10 OR GREATER Last Admin: 12/06/17 09:43 Dose: 5 mg Diltiazem HCl (Cardizem) 5 mg SLOW IVP Q4HR PRN PRN Reason: HR >130 sustained Diltiazem HCl (Cardizem) 30 mg PO Q6HR PRN PRN Reason: HR >120 sustained Folic Acid (Folvite) 1 mg PO DAILY [facility] Last Admin: 12/06/17 09:43 Dose: 1 mg Guaifenesin (Robitussin Sf) 200 mg PO Q4H PRN PRN Reason: Cough Last Admin: 12/06/17 05:34 Dose: 200 mg Hydralazine HCl (Apresoline) 10 mg SLOW IVP Q4H PRN PRN Reason: Systolic BP > 180 Dextrose/Sodium Chloride (D5 1/2 Ns) 1,000 mls @ 50 mls/hr IV .Q20H [facility] Last Admin: 12/06/17 05:32 Dose: 1,000 mls Iron/Minerals/Multivitamins (Theragran M) 1 tab PO DAILY [facility] Last Admin: 12/06/17 09:43 Dose: 1 tab Labetalol HCl (Normodyne) 10 mg SLOW IVP Q4H PRN PRN Reason: Systolic BP > 180 Loperamide HCl (Imodium) 2 mg PO PRN PRN PRN Reason: Diarrhea/Loose Stools Loratadine (Claritin) 10 mg PO DAILYPRN PRN PRN Reason: Sinus Symptoms Magnesium Hydroxide (Milk Of Magnesium) 30 ml PO DAILYPRN PRN PRN Reason: Constipation Metoprolol Tartrate (Lopressor) 25 mg PO BID [facility] Last Admin: 12/06/17 09:43 Dose: 25 mg Mineral Oil/White Petrolatum (Eucerin Cream) 0 gm TOP BIDPRN PRN PRN Reason: Dry Skin Mometasone Furoate/Formoterol Fumar (Dulera 200 Mcg/5 Mcg Inhaler) 2 puff INH BID [facility] Last Admin: 12/06/17 06:37 Dose: 2 puff Nicotine (Nicoderm Patch) 14 mg TD Q24HR [facility] Last Admin: 12/05/17 15:25 Dose: 14 mg Ondansetron HCl (Zofran Odt) 4 mg PO Q6H PRN PRN Reason: Nausea/Vomiting Last Admin: 12/02/17 15:07 Dose: 4 mg Ondansetron HCl (Zofran) 4 mg IVP Q6H PRN PRN Reason: Nausea/Vomiting Pantoprazole Sodium (Protonix) 40 mg PO BID [facility] Last Admin: 12/06/17 09:43 Dose: 40 mg Phenol (Chloraseptic [place] 180 Ml Bot) 0 ml PO PRN PRN PRN Reason: Sore Throat Senna (Senokot) 2 tab PO HSPRN PRN PRN Reason: Constipation Sodium Chloride ([place] Nasal [place] 0.65%) 0 ml EA NARE QIDPRN PRN PRN Reason: Nasal Congestion Sodium Chloride (Flush - Normal Saline) 10 ml IVF Q12HR [facility] Last Admin: 12/06/17 09:43 Dose: Not Given Sodium Chloride (Flush - Normal Saline) 10 ml IVF PRN PRN PRN Reason: Saline Flush Thiamine HCl (Thiamine) 100 mg PO DAILY [facility] Last Admin: 12/06/17 09:43 Dose: 100 mg
[2017-12-06] MEDS: Nicotine 14 MG PATCH TD SCH (15:36)
[2017-12-07] MEDS: Dextrose 5 %-0.45 % NaCl 1,000 ML IV SCH (01:58)
[2017-12-07] MEDS: Diazepam 5 MG TAB PO PRN (02:01)
[2017-12-07] MEDS: Calcium Carbonate 500 MG ChewTAB PO PRN (02:01)
[2017-12-07 04:50] LABS: Hemoglobin 12.9 g/dL (14.0-18.0)
[2017-12-07] MEDS: Mometasone/Formoterol 120 PUFF INHALER INH SCH ×2 (07:42→19:11)
[2017-12-07] MEDS: cloNIDine 0.1 MG TAB PO SCH (09:29)
[2017-12-07] MEDS: Folic Acid 1 MG TAB PO SCH (09:30)
[2017-12-07] MEDS: Multivitamin W/ Minerals 1 TAB PO SCH (09:30)
[2017-12-07] MEDS: Metoprolol Tartrate 25 MG TAB PO SCH ×2 (09:30→20:30)
[2017-12-07] MEDS: Mag-Al 1200 mg/1200 mg/30 ML UDCUP PO PRN (09:37)
[2017-12-07] MEDS: Nicotine 14 MG PATCH TD SCH (13:06)
[2017-12-07] MEDS ORDERED: cloNIDine 0.1 MG TAB PO PRN (13:32)
--- NOTE | 2017-12-07 15:15 | EKG ---
Test Reason : Blood Pressure : / mmHG Vent. Rate : 121 BPM Atrial Rate : 121 BPM P-R Int : 144 ms QRS Dur : 102 ms QT Int : 336 ms P-R-T Axes : 071 -71 049 degrees QTc Int : 477 ms Sinus tachycardia Incomplete right bundle branch block Left anterior fascicular block Inferior infarct , age undetermined Abnormal ECG Confirmed by PENG HARDWICK, ESVIN ([id number]), editor index HORACIO BURGESS ([id number]) on 12/07/2017 3:14:34 PM Referred By: MARIA ELENA KHOURY Confirmed By:ESVIN KHOURY MD
--- NOTE | 2017-12-07 19:10 | PDOC.PN ---
- Subjective Encounter Start Date: 12/07/17 Encounter Start Time: 15:00 Patient seen and examined. Feelins slightly better. Lightheaded cherelle on standing. No overnight events - Objective Resuscitation Status: Resuscitation Status FULL:Full Resuscitation MAR Reviewed: Yes Vital Signs & Weight: Vital Signs (12 hours) Temp Pulse Resp BP BP Pulse Ox 12/07/17 16:00 98.3 F 88 16 125/82 125/82 96 12/07/17 12:00 97.7 F 86 16 119/86 118/76 94 L 12/07/17 09:29 119/83 12/07/17 08:00 98.4 F 86 16 119/83 94 L 12/07/17 07:42 69 14 96 Weight Admit Weight 270 lb Weight 270 lb I&O: 12/06/17 12/07/17 12/08/17 06:59 06:59 06:59 Intake Total 3325 3164 2440 Balance 3325 3164 2440 Result Diagrams: 12/07/17 04:15 12/06/17 05:01 Phys Exam - Physical Examination Constitutional: NAD Respiratory: no wheezing, no rhonchi Cardiovascular: RRR, no rub Gastrointestinal: soft, non-tender, positive bowel sounds Musculoskeletal: no edema Neurological: moves all 4 limbs Dx/Plan - Plan DVT proph w/SCDs IMPRESSION: 1. Alcohol withdrawal - on Librium KAUSHAL with Valium PRN 2. UGI bleed due to Erosive esophagitis s/p EGD 12/03 - tolerating liqd. Still has difficulty with mech soft feeds. On PPI 3. Anemia due to acute GI blood loss. 4. Chronic Alcoholism - on thiamine/folic acid/MVM 5. HTN - uncontrolled - prob due to Alcohol withdrawal 6. Tachyarrhythmia/Code green - prob due to alcohol withdrawal - improved 7. Mild Intermittent Asthma/HH/Blcawfp-Dcynlxmpcx-Eganuvf disorder/Tobacco dep - on nicotin patch /Obesity BMI 32.9/ Hyponatremia - resolved PLAN: * DC Clonidine * DC IVF * Cont Librium 10 mg TID * Cont Valium for alcohol withdrawal * HH stable * Cont Protonix * Cont thiamine/folic acid/MVM * Cont Metoprolol * Cont other current meds as below * Cont PT * DC in 24-48 hr if stable * Check Orthostatics in AM Review of Systems - Review of Systems Respiratory: negative: Cough, Dry, Shortness of Breath, Hemoptysis, SOB with Excertion, Pleuritic Pain, Sputum, Wheezing Cardiovascular: negative: chest pain, palpitations, orthopnea, paroxysmal nocturnal dyspnea, edema, light headedness - Medications/Allergies Allergies/Adverse Reactions: Allergies Allergy/AdvReac Type Severity Reaction Status Date / Time ibuprofen Allergy Intermediate Swollen Verified 02/28/16 07:48 Lips aspirin Allergy Verified 12/07/17 01:30 corn Allergy Verified 12/07/17 01:30 scallops Allergy Verified 12/07/17 01:30 shrimp Allergy Verified 12/07/17 01:30 soy Allergy Verified 12/07/17 01:30 wheat Allergy Verified 12/07/17 01:30 Medications: Current Medications Acetaminophen (Tylenol) 650 mg PO Q4H PRN PRN Reason: Headache/Fever or Pain Al Hydroxide/Mg Hydroxide (Maalox) 30 ml PO Q6H PRN PRN Reason: Heartburn or Indigestion Last Admin: 12/07/17 09:37 Dose: 30 ml Albuterol Sulfate (Proventil Hfa) 2 puff INH Q6H PRN PRN Reason: SOB &/or Wheezing Albuterol/Ipratropium (Duoneb) 3 ml NEB [id number] PRN PRN Reason: SOB &/or Wheezing Last Admin: 12/02/17 19:29 Dose: 3 ml Albuterol/Ipratropium (Duoneb) 3 ml NEB [id number] PRN PRN Reason: SOB &/or Wheezing Artificial Tears (Tears Naturale) 0 drop EA EYE PRN PRN PRN Reason: Dry Eyes Calcium Carbonate (Tums) 1,000 mg PO Q4H PRN PRN Reason: Heartburn or Indigestion Last Admin: 12/07/17 02:01 Dose: 1,000 mg Chlordiazepoxide HCl (Librium) 10 mg PO TID [facility] Last Admin: 12/07/17 15:17 Dose: 10 mg Clonidine (Catapres) 0.1 mg PO Q4H PRN PRN Reason: Systolic BP > 180 Clonidine (Catapres) 0.1 mg PO Q4H PRN PRN Reason: Systolic BP > 180 Diazepam (Valium) 5 mg PO Q4H PRN PRN Reason: FOR ASE 10 OR GREATER Last Admin: 12/07/17 02:01 Dose: 5 mg Diltiazem HCl (Cardizem) 5 mg SLOW IVP Q4HR PRN PRN Reason: HR >130 sustained Diltiazem HCl (Cardizem) 30 mg PO Q6HR PRN PRN Reason: HR >120 sustained Folic Acid (Folvite) 1 mg PO DAILY [facility] Last Admin: 12/07/17 09:30 Dose: 1 mg Guaifenesin (Robitussin Sf) 200 mg PO Q4H PRN PRN Reason: Cough Last Admin: 12/06/17 05:34 Dose: 200 mg Hydralazine HCl (Apresoline) 10 mg SLOW IVP Q4H PRN PRN Reason: Systolic BP > 180 Iron/Minerals/Multivitamins (Theragran M) 1 tab PO DAILY [facility] Last Admin: 12/07/17 09:30 Dose: 1 tab Labetalol HCl (Normodyne) 10 mg SLOW IVP Q4H PRN PRN Reason: Systolic BP > 180 Loperamide HCl (Imodium) 2 mg PO PRN PRN PRN Reason: Diarrhea/Loose Stools Loratadine (Claritin) 10 mg PO DAILYPRN PRN PRN Reason: Sinus Symptoms Magnesium Hydroxide (Milk Of Magnesium) 30 ml PO DAILYPRN PRN PRN Reason: Constipation Metoprolol Tartrate (Lopressor) 25 mg PO BID [facility] Last Admin: 12/07/17 09:30 Dose: Not Given Mineral Oil/White Petrolatum (Eucerin Cream) 0 gm TOP BIDPRN PRN PRN Reason: Dry Skin Mometasone Furoate/Formoterol Fumar (Dulera 200 Mcg/5 Mcg Inhaler) 2 puff INH BID [facility] Last Admin: 12/07/17 07:42 Dose: 2 puff Nicotine (Nicoderm Patch) 14 mg TD Q24HR [facility] Last Admin: 12/07/17 13:06 Dose: 14 mg Ondansetron HCl (Zofran Odt) 4 mg PO Q6H PRN PRN Reason: Nausea/Vomiting Last Admin: 12/02/17 15:07 Dose: 4 mg Ondansetron HCl (Zofran) 4 mg IVP Q6H PRN PRN Reason: Nausea/Vomiting Pantoprazole Sodium (Protonix) 40 mg PO BID [facility] Last Admin: 12/07/17 09:29 Dose: 40 mg Phenol (Chloraseptic [place] 180 Ml Bot) 0 ml PO PRN PRN PRN Reason: Sore Throat Senna (Senokot) 2 tab PO HSPRN PRN PRN Reason: Constipation Sodium Chloride ([place] Nasal [place] 0.65%) 0 ml EA NARE QIDPRN PRN PRN Reason: Nasal Congestion Sodium Chloride (Flush - Normal Saline) 10 ml IVF Q12HR [facility] Last Admin: 12/07/17 09:32 Dose: Not Given Sodium Chloride (Flush - Normal Saline) 10 ml IVF PRN PRN PRN Reason: Saline Flush Thiamine HCl (Thiamine) 100 mg PO DAILY [facility] Last Admin: 12/07/17 09:29 Dose: 100 mg
[2017-12-08 04:16] LABS: Hemoglobin 12.8 g/dL (14.0-18.0)
[2017-12-08] MEDS: Mometasone/Formoterol 120 PUFF INHALER INH SCH ×2 (06:39→19:28)
[2017-12-08] MEDS: Metoprolol Tartrate 25 MG TAB PO SCH ×2 (08:50→20:37)
[2017-12-08] MEDS: Multivitamin W/ Minerals 1 TAB PO SCH (08:50)
[2017-12-08] MEDS: Folic Acid 1 MG TAB PO SCH (08:51)
[2017-12-08] MEDS: Mag-Al 1200 mg/1200 mg/30 ML UDCUP PO PRN (08:51)
[2017-12-08] MEDS: Nicotine 14 MG PATCH TD SCH (14:45)
[2017-12-08] MEDS ORDERED: Diazepam 10 MG/2 ML SYRINGE IVP PRN (15:49)
--- NOTE | 2017-12-08 15:52 | PDOC.PN ---
- Subjective Encounter Start Date: 12/08/17 Encounter Start Time: 15:51 Mr. Ching says that his withdrawal symptoms have improved, but he is still dizzy. He says he is so dizzy that he has to hold on the the side of the wall when he is walking. He says he " has to get this figured out". - Objective Resuscitation Status: Resuscitation Status FULL:Full Resuscitation MAR Reviewed: Yes Vital Signs & Weight: Vital Signs (12 hours) Temp Pulse Resp BP BP Pulse Ox 12/08/17 12:00 99.0 F 83 106/73 12/08/17 11:26 99.0 F 83 18 106/73 96 12/08/17 08:00 99.0 F 83 18 119/76 12/08/17 07:16 98.1 F 78 18 119/76 92 L 12/08/17 06:39 80 12 94 L 12/08/17 04:00 98 F 80 18 122/86 94 L Weight Admit Weight 270 lb Weight 270 lb I&O: 12/07/17 12/08/17 12/09/17 06:59 06:59 06:59 Intake Total 3164 2900 720 Balance 3164 2900 720 Result Diagrams: 12/08/17 03:42 12/06/17 05:01 Phys Exam - Physical Examination HEENT: PERRLA, TM's clear no fluid behind the drums no nystagmus Neck: no nodes Respiratory: no wheezing, no rales, no rhonchi, clear to auscultation bilateral Cardiovascular: RRR, no significant murmur Gastrointestinal: soft, non-tender, positive bowel sounds Musculoskeletal: no edema Neurological: non-focal, moves all 4 limbs a little slow with finger to nose, and able to perform heel/mccarthy without difficulty Psychiatric: normal affect, A&O x 3 Dx/Plan (1) Esophagitis, [place] grade D Code(s): K20.8 - OTHER ESOPHAGITIS Status: Acute (2) Alcohol withdrawal syndrome Code(s): F10.239 - ALCOHOL DEPENDENCE WITH WITHDRAWAL, UNSPECIFIED Status: Acute (3) Alcohol abuse Code(s): F10.10 - ALCOHOL ABUSE, UNCOMPLICATED Status: Chronic (4) Bipolar disorder Code(s): F31.9 - BIPOLAR DISORDER, UNSPECIFIED Status: Chronic (5) Hypertension Code(s): I10 - ESSENTIAL (PRIMARY) HYPERTENSION Status: Chronic - Plan * Dizziness-? etiology, may be due to chronic alcohol abuse and problems with proprioception- will check an MRI and MRA, and if negative will continue treatment with Thiamine and Folate * Alcohol withdrawal- resolved * Esophagitis- continue Protonix twice a day.
[2017-12-09] MEDS: Mometasone/Formoterol 120 PUFF INHALER INH SCH (07:27)
[2017-12-09] MEDS: Folic Acid 1 MG TAB PO SCH (08:19)
[2017-12-09] MEDS: Multivitamin W/ Minerals 1 TAB PO SCH (08:19)
[2017-12-09] MEDS: Metoprolol Tartrate 25 MG TAB PO SCH (08:19)
[2017-12-09] MEDS: Diazepam 5 MG TAB PO PRN (09:45)
--- NOTE | 2017-12-09 11:36 | MRI ---
MRI BRAIN WITHOUT CONTRAST: Date: 12/09/17 HISTORY: Dizziness. FINDINGS: No restricted diffusion is seen. No evidence of infarct, hemorrhage, midline shift, or abnormal extra -axial fluid collections are noted. The ventricular size is appropriate and the basilar cisterns are patent. There is a small amount of fluid in the right mastoid air cells. There is mucosal disease in the paranasal sinuses. Mucus retention cyst versus polyps noted in the maxillary sinuses. IMPRESSION: No evidence of acute intracranial process. POS: [facility]
--- NOTE | 2017-12-09 11:37 | MRI ---
MRA BRAIN WITHOUT IV CONTRAST: Date: 12/09/17 HISTORY: Dizziness. FINDINGS/IMPRESSION: The intracranial portions of the vertebrobasilar and carotid artery systems demonstrate no evidence o f major branch occlusion, high grade stenosis, or aneurysm formation. POS: [facility]
--- NOTE | 2017-12-09 12:02 | PDOC.PN ---
- Subjective Encounter Start Date: 12/09/17 Encounter Start Time: 12:00 Mr. Ching says the dizziness has improved. He has ambulated some without difficulty. - Objective Resuscitation Status: Resuscitation Status FULL:Full Resuscitation MAR Reviewed: Yes Vital Signs & Weight: Vital Signs (12 hours) Temp Pulse Resp BP BP Pulse Ox 12/09/17 08:00 98.2 F 88 22 H 126/78 93 L 12/09/17 07:50 98.2 F 88 22 H 126/78 93 L 12/09/17 04:00 97.8 F 86 18 100/67 100/67 93 L Weight Admit Weight 270 lb Weight 270 lb I&O: 12/08/17 12/09/17 12/10/17 06:59 06:59 06:59 Intake Total 2900 1940 Balance 2900 1940 Result Diagrams: 12/08/17 03:42 12/06/17 05:01 Phys Exam - Physical Examination HEENT: PERRLA Respiratory: no wheezing, no rales, no rhonchi, clear to auscultation bilateral Cardiovascular: RRR, no significant murmur, no rub Gastrointestinal: soft, non-tender, positive bowel sounds Musculoskeletal: no edema Dx/Plan (1) Esophagitis, [place] grade D Code(s): K20.8 - OTHER ESOPHAGITIS Status: Acute (2) Alcohol withdrawal syndrome Code(s): F10.239 - ALCOHOL DEPENDENCE WITH WITHDRAWAL, UNSPECIFIED Status: Acute (3) Alcohol abuse Code(s): F10.10 - ALCOHOL ABUSE, UNCOMPLICATED Status: Chronic (4) Bipolar disorder Code(s): F31.9 - BIPOLAR DISORDER, UNSPECIFIED Status: Chronic (5) Hypertension Code(s): I10 - ESSENTIAL (PRIMARY) HYPERTENSION Status: Chronic - Plan * Alcohol Withdrawal- resolved * Dizziness- resolving * MRI MRA results noted * HTN- blood pressure is controlled * He is stable for discharge.
[2017-12-09] MEDS: Nicotine 14 MG PATCH TD SCH (14:05)
--- NOTE | 2017-12-09 14:35 | DIS ---
DATE OF ADMISSION: 12/02/2017 DATE OF DISCHARGE: 12/09/2017 PRIMARY CARE PHYSICIAN: None. DISCHARGE DISPOSITION: Home. PRIMARY DISCHARGE DIAGNOSES: 1. [place] grade D esophagitis. 2. Alcohol abuse. 3. Alcohol withdrawal. 4. Hypertension. 5. Asthma. DISCHARGE MEDICATIONS: Include thiamine 100 mg daily, Protonix 40 mg daily, multivitamin once a day, Dulera 2 puffs twice a day, Lopressor 25 mg twice a day, lisinopril 5 mg daily, folic acid 1 mg cary y, and ProAir inhaler 2 puffs q.6 as needed. PROCEDURES DONE DURING ADMISSION: The patient had an upper endoscopy in which it demonstrated a grad e D erosive gastritis. There was some distal esophageal stenosis in which the scope could easily pas s 3 cm hiatal hernia, otherwise normal. The patient had a CT scan of the chest in which the findings show moderate hiatal hernia. There was no evidence of pneumomediastinum and there was no pneumothor ax. The patient also had an MRI of the brain in which there was no evidence of any intracranial abno rmality and an MR angiogram showing no aneurysm. CODE STATUS: FULL CODE. ALLERGIES: IBUPROFEN, ASPIRIN, CORNS, SCALLOPS, SHRIMPS, SOY AND WHEAT. HOSPITAL COURSE: Mr. Ching is a pleasant 47-year-old gentleman who presented to the emergency room with complaints of melanotic stools for 3 days and vomiting blood. He was admitted and GI was consul tia. He underwent upper endoscopy and was found to have a grade D esophagitis. It was recommended t hat he continue on a proton pump inhibitor. The patient also complained of some continued dizziness and some mild agitation and was treated several days for alcohol withdrawal due to some persistent di zziness, an MRI of the brain, as well as MR angiogram was done which were negative and actually the s melinda day, the MRI was done, his symptoms of dizziness actually started to improve. At the time of dis charge, his vital signs were stable. His blood pressure was 129/83, heart rate 83, respiratory rate 18, and he was afebrile and no signs of withdrawal and therefore, he will not be sent home on any add itional benzodiazepines. He plans to go to a rehabilitation center on tomorrow to deal with his alco hol abuse. He was encouraged once again on abstinence and is stable for discharge home.
[2017-12-09 16:50] VITALS: BP 123/76; TEMP 98.2
== END 2017-12-09 16:57 | disposition home or self-care (01) | DRG 381 ==
LOC: ERS 02:19 → ERHOLD 05:30 → ONC 12:08 → IMCU/EMU 18:27 → T4-B 12-04 17:26
PROVIDERS: ADMIT Internal Medicine; ATTEND Internal Medicine
PROC: 0DJ08ZZ Inspection of Upper Intestinal Tract, Via Natural or Artificial Opening Endoscopic (ICD-10-PCS; principal; 2017-12-03)
DX: K22.11 Ulcer of esophagus with bleeding (principal); I45.2 Bifascicular block; D62 Acute posthemorrhagic anemia; E87.1 Hypo-osmolality and hyponatremia; F10.239 Alcohol dependence with withdrawal, unspecified; K92.2 Gastrointestinal hemorrhage, unspecified; K22.2 Esophageal obstruction; E86.0 Dehydration; F17.210 Nicotine dependence, cigarettes, uncomplicated; Z88.6 Allergy status to analgesic agent; Z91.013 Allergy to seafood; Z91.018 Allergy to other foods; I10 Essential (primary) hypertension; M17.11 Unilateral primary osteoarthritis, right knee; F41.9 Anxiety disorder, unspecified; F32.9 Major depressive disorder, single episode, unspecified; F31.9 Bipolar disorder, unspecified; R11.2 Nausea with vomiting, unspecified; K44.9 Diaphragmatic hernia without obstruction or gangrene; J45.20 Mild intermittent asthma, uncomplicated
CPT/HCPCS: 36415; 70544; 70551; 71045; 71260; 80048; 80053; 80306; 80307; 81003; 82274; 82550; 82553; 83690; 83735; 83880; 84484; 85014; 85018; 85025; 85049; 93005; 93010; 94640; 96361; 96365; 96366; 96375; 96376; 99406; A4216; C9113; G8978-GP-CI; G8979-GP-CI; G8980-GP-CI; J2001; J2405; J2550; J2704; J3475; J7050; J7620; Q0162

== ENCOUNTER 2018-03-08 22:31 | Emergency (ER) | payer BC ==
[2018-03-08] MEDS ORDERED: Albuterol Sulfate 2.5 mg/3 ml Neb ONE (22:48)
[2018-03-08 22:59] LABS: #Lymphocytes 2.4 thou/uL (1.20-3.40); #Monocytes 0.7 thou/uL (0.11-0.59); #Neutrophils 4.2 thou/uL (1.40-6.50); %Basophils 0.6 % (0.0-1.0); %Eosinophils 0.4 % (0.0-10.0); %Lymphocytes 32.6 % (21.0-51.0); %Monocytes 9.5 % (0.0-10.0); %Neutrophils 56.9 % (42.0-75.0); Hemoglobin 16.1 g/dL (14.0-18.0); Mean Corpuscular HGB CONC 35.3 g/dL (32.0-36.0); Mean Corpuscular Hemoglobin 32.6 pg (27.0-31.0); Mean Corpuscular Volume 92.3 fl (80.0-94.0); Mean Platelet Volume 7.4 fL (7.4-10.4); Platelet Count 161 thou/uL (130-400); RBC Distribution Width 13.9 % (11.5-14.5); Red Blood Cell (RBC) Count 4.94 mill/uL (4.70-6.10); White Blood Cell (WBC) Count 7.4 thou/uL (4.8-10.8)
[2018-03-08 23:20] LABS: ALT (SGPT) 25 U/L (8-55); AST (SGOT) 37 U/L (5-34); Acetaminophen Less than 6.0 mcg/mL (10.0-30.0); Albumin 3.9 g/dL (3.5-5.0); Alkaline Phosphatase 75 U/L (40-150); Anion Gap 14 mmol/L (10-20); BUN (Urea Nitrogen) 15 mg/dL (8.9-20.6); Bilirubin, Total 0.2 mg/dL (0.2-1.2); CK (CPK) 111 U/L (30-200); Calc. Creatinine Clearance 0 mL/min (70-130); Calcium 8.3 mg/dL (7.8-10.44); Carbon Dioxide 27 mmol/L (22-29); Chloride 105 mmol/L (98-107); Estimated GFR-MDRD Greater than 90; Glucose 142 mg/dL (70-105); Protein, Total 6.9 g/dL (6.0-8.3); Salicylate Less than 8.0 mg/dL (15.0-30.0); Sodium 142 mmol/L (136-145)
--- NOTE | 2018-03-08 23:22 | RAD ---
PORTABLE CHEST ONE VIEW 03/08/18 at 11 p.m. HISTORY: Wheezing. FINDINGS: Comparison made with the exam of 12/02/17. The heart size is normal. No focal areas of consolidation, pneumothorax or pleural effusions are seen . IMPRESSION: No radiographic evidence of acute cardiopulmonary process. POS: [facility]
[2018-03-08 23:40] LABS: Alcohol 424 mg/dL (Less than 10)
[2018-03-09] MEDS ORDERED: Acetaminophen 325 MG TAB ONE (00:01)
[2018-03-09] MEDS ORDERED: hydrOXYzine Pamoate 25 mg Capsule ONE (00:01)
[2018-03-09] MEDS ORDERED: Nicotine 14 MG PATCH ONE (00:02)
[2018-03-09] MEDS ORDERED: Ziprasidone 20 MG CAP ONE (00:02)
[2018-03-09 01:09] LABS: Bilirubin Negative (Negative); Blood, Urine Negative (Negative); Clarity CLEAR (Clear); Glucose, Urine (Dipstick) Negative (Negative); Leukocyte Negative (Negative); Nitrite Negative (Negative); Protein, Urine (Dipstick) Negative (Neg-Trace); Specific Gravity, Urine 1.014 (1.002-1.036); Urobilinogen 0.2 mg/dL (0.2-1.0); pH, Urine 6.5 (5.0-9.0)
[2018-03-09 01:18] LABS: Amphetamine Not Detected (NotDetected); Barbiturates Screen Not Detected (NotDetected); Benzodiazepine Screen Not Detected (NotDetected); Cocaine Metabolite Screen Not Detected (NotDetected); Medtox Control Line Valid? VALID (VALID); Medtox Reader # READER 4; Methadone Not Detected (NotDetected); Methamphetamine Not Detected (NotDetected); Opiate Screen Not Detected (NotDetected); Oxycodone Screen Not Detected (NotDetected); Phencyclidine (PCP) Not Detected (NotDetected); THC/Cannabinoid Screen Not Detected (NotDetected); Tricyclic Screen Not Detected (NotDetected)
[2018-03-09] MEDS ORDERED: methylPREDNISolone Sod Succ/PF 125 MG/2 ML VIAL ONE (18:29)
[2018-03-09] MEDS ORDERED: diphenhydrAMINE 50 MG/ML VIAL ONE (18:29)
== END 2018-03-10 03:25 ==
LOC: ERS 22:31
DX: F32.9 Major depressive disorder, single episode, unspecified (principal); F10.129 Alcohol abuse with intoxication, unspecified; J45.901 Unspecified asthma with (acute) exacerbation; M17.11 Unilateral primary osteoarthritis, right knee; F41.9 Anxiety disorder, unspecified; Z71.6 Tobacco abuse counseling; F17.210 Nicotine dependence, cigarettes, uncomplicated; Y90.8 Blood alcohol level of 240 mg/100 ml or more
CPT/HCPCS: 36415; 71045; 80053; 80306; 80307; 81003; 82550; 84443; 85025; 94640; 96374; 96375; 99406; J1200; J2930; J7611; J7620; Q0177